=== PATIENT | female | born 1950 | race Caucasian/White ===

== ENCOUNTER → 2023-11-19 08:47 | Outpatient (REF) | payer MEDICARE, SELFPAY | LOC: DHCBC MAIN 08:47 | PROVIDERS: ATTENDING PHYSICIAN Internal Medicine Cardiovascular Disease; FAMILY PHYSICIAN Internal Medicine | DX: I10 Essential (primary) hypertension (principal); I47.29 Other ventricular tachycardia; I89.0 Lymphedema, not elsewhere classified; I44.4 Left anterior fascicular block; I35.1 Nonrheumatic aortic (valve) insufficiency | CPT/HCPCS: 93306 ==

== ENCOUNTER → 2024-01-15 08:22 | Outpatient (REF) | payer MEDICARE, SELFPAY | LOC: RCS 08:22 | PROVIDERS: ATTENDING PHYSICIAN Internal Medicine Cardiovascular Disease; FAMILY PHYSICIAN Internal Medicine | DX: I10 Essential (primary) hypertension (principal); I47.29 Other ventricular tachycardia | CPT/HCPCS: 93225; 93226 ==

== ENCOUNTER → 2025-06-07 13:12 | Outpatient (REF) | payer MEDICARE, SELFPAY | LOC: HWRAD 13:12 | PROVIDERS: ATTENDING PHYSICIAN Physician Assistant Surgical; FAMILY PHYSICIAN Internal Medicine | DX: M25.561 Pain in right knee (principal) | CPT/HCPCS: 73700 ==